=== PATIENT | male | born 2000 | race Caucasian/White ===

== ENCOUNTER 2019-11-09 16:02 | Emergency (ER) | payer OTHER ==
[~2019-11-09] VITALS: Ht 170.2 cm; Wt 63.6 kg
[2019-11-09 16:14] VITALS: BP 138/94
[2019-11-09] MEDS ORDERED: CEPH250 PO (16:22)
== END 2019-11-09 20:02 | disposition left against medical advice (07) ==
LOC: EMS 16:03
DX: Z48.00 Encounter for change or removal of nonsurgical wound dressing (principal); Z53.21 Procedure and treatment not carried out due to patient leaving prior to being seen by health care provider